=== PATIENT | female | born 1935 | race Caucasian/White ===

== ENCOUNTER 2024-06-13 08:59 | Emergency (ER) | payer MEDICARE, SELFPAY ==
--- NOTE | ~2024-06-13 | CT_ITS ---
EXAMINATION: CT abdomen pelvis w con DATE: 06/13/2024 10:25 INDICATION: Left-sided abdominal pain. History of diverticulitis. TECHNIQUE: Computed tomography (CT) of the abdomen and pelvis was performed with 100 CC Omnipaque 350 intravenous contrast. Automated exposure control and iterative reconstruction technique were employe d. Exam dose: 189.00 mGy-cm total exam DLP. COMPARISON: 11/21/2007 CT abdomen pelvis FINDINGS: Stable approximately 3.5 mm nodular density of the middle lobe, without significant change since 11/21/2007, consistent with benign process, likely pulmonary granuloma. There is minimal dependent atelectasis of the lower lobes. No basilar consolidation is noted. Heart size is normal. No pericardial or pleural effusion. The liver is unremarkable other than a couple of probable hepatic cysts, measuring up to approximatel y 7 mm. Normal splenic size. No pancreatic mass lesion or calcification is noted. The pancreatic duct measures up to 3 mm, upper l imits of normal. The gallbladder appears unremarkable, without thickening of the wall or pericholecystic fluid or fat stranding. No bile duct dilatation. Normal morphology of the adrenal glands. Very small upper pole right renal cortical probable cyst. The kidneys are unremarkable. No urinary tr act calculus or hydroureteronephrosis. The urinary bladder is unremarkable. Status post hysterectomy. There is extensive atherosclerotic calcification of the abdominal aorta but no abdominal aortic aneur ysm. No intraperitoneal or retroperitoneal or pelvic mass lesion or adenopathy or ascites. Diverticulosis of colon, including particularly numerous sigmoid diverticula; no CT evidence of diver ticulitis is evident. No bowel obstruction or intraperitoneal air. Prominent compression fracture deformity of L4. There is severe degenerative disc disease of the lumbar and lumbosacral spine. There is severe degenerative change of the lumbar and lumbosacral apophyseal joints comment with asso ciated grade 1 anterolisthesis at L4-5. No suspicious osteolytic or osteoblastic lesions are noted. IMPRESSION: Diverticulosis of the left colon; no CT evidence of diverticulitis Small hepatic cysts Status post hysterectomy Prominent compression fracture of L4 Extensive degenerative change of the lumbar spine Reviewed, dictated and finalized at [facility] Reviewed, dictated and finalized at [facility] [employer]NA[employer]
[2024-06-13 09:22] VITALS: BP 99/84; PULSE 71; RESP 18; TEMP 36.5; O2SAT 100
[2024-06-13 09:33] VITALS: BP 157/88; PULSE 66; RESP 18; O2SAT 100
[2024-06-13 09:35] LABS: Basophils Absolute Auto 0.1 K/mm3 (0.0-0.1); Basophils Percent Auto 0.9 % (0.2-1.2); Eosinophils Absolute Auto 0.2 K/mm3 (0-0.3); Hematocrit 41.6 % (37.0-47.0); Hemoglobin 14.1 g/dL (12.0-15.0); Immature Granulocyte Absolute 0.01 K/mm3 (0.00-0.031); Immature Granulocyte Percent A 0.2 % (0-0.5); Lymphocytes Absolute Auto 1.27 K/mm3 (0.9-3.2); Lymphocytes Percent Auto 22.5 % (18.3-44.2); Mean Corpuscular HGB Conc 33.9 g/dl (32-36); Mean Corpuscular Hemoglobin 30.7 pg (26-34); Mean Corpuscular Volume 90.4 fl (80-100); Mean Platelet Volume 9.1 fl (7.4-10.4); Monocytes Absolute Auto 0.6 K/mm3 (0.1-0.6); Monocytes Percent Auto 10.6 % (2.6-8.5); Neutrophils Absolute Auto 3.6 K/mm3 (1.3-6.7); Neutrophils Percent Auto 62.8 % (45.5-73.1); Platelet Count Result 239 k/mm3 (150-375); Red Cell Distribution Width 12.9 % (11.5-14.5); White Blood Count 5.7 K/mm3 (4.5-10.0)
[2024-06-13 09:47] VITALS: BP 133/59; PULSE 67; RESP 18; O2SAT 99
[2024-06-13 10:01] VITALS: BP 133/61; PULSE 69; RESP 18; O2SAT 100
[2024-06-13 10:03] LABS: Alanine Aminotransferase 18 U/L (6-35); Albumin Level 4.5 g/dL (3.5-5.1); Alkaline Phosphatase 64 U/L (38-126); Anion Gap 4 mmol/L (4-12); Aspartate Amino Transferase 30 U/L (14-36); Bilirubin,Total 0.8 mg/dL (0.2-1.3); Blood Urea Nitrogen 8 mg/dL (7-17); Calcium 9.7 mg/dL (8.4-10.2); Carbon Dioxide 32 mmol/L (22-30); Chloride 97 mmol/L (98-107); Estimated CRCL calculation 50 ml/min; Estimated Glomerular Filt Rate > 60; Glucose 90 mg/dL (65-110); Lipase 134 U/L (23-300); Potassium 4.1 mmol/L (3.4-5.0); Sodium 133 mmol/L (137-145)
--- NOTE | 2024-06-13 10:12 | ED.GENADULT ---
HPI - General Adult General Chief complaint: Unspecified Stated complaint: constipation and bloating Time Seen by Provider: 06/13/24 09:04 Source: patient Mode of arrival: ambulatory Limitations: no limitations History of Present Illness HPI narrative: this is an 88-year-old female that presents to the emergency department for left-sided abdominal pain. Ongoing over the last week. Associated with bloating and abnormal stools. reports she is feeling very constipated and normally able to have small bowel movements. Denies fevers or vomiting. Related Data Allergies Allergy/AdvReac Type Severity Reaction Status Date / Time Penicillins Allergy Unknown Hives Verified 06/13/24 09:01 Sulfa (Sulfonamide Allergy Unknown Diarrhea Verified 06/13/24 09:01 Antibiotics) Review of Systems Review of Systems: CONSTITUTIONAL: Denies fever GASTROINTESTINAL: Reports abdominal pain, nausea. Denies vomiting GENITOURINARY: Denies dysuria or hematuria. All systems reviewed & are unremarkable except as noted in HPI and below PMFSH Past Medical History Medical History (Updated 06/13/24 @ 12:53 by Sejal Mack PA-C) History of hyperlipidemia Family History Family History (System 06/07/22 @ 15:07 by Paul Conti) Other Cerebrovascular accident Diabetes mellitus Family history of tuberculosis Social History Social History (System 06/07/22 @ 15:07 by Paul Conti) Smoking status: Never smoker Alcohol intake: never Exam Narrative: GENERAL: Elderly, well-nourished, and in no acute distress. HEAD: Normocephalic, atraumatic. EYES: EOMI. CHEST: Clear to auscultation. No respiratory distress. No wheezes rales or rhonchi HEART: Regular rate and rhythm. No murmur heard. Normal peripheral pulses. ABDOMEN: Soft, nondistended, normal active bowel sounds. Tender to palpation in the left lower abdomen, without guarding EXTREMITIES: Normal range of motion. No edema. SKIN: Warm, dry, no rash. NEURO: No focal deficits. Alert and oriented x3. PSYCH: Normal mood and affect Course Vital Signs Vital signs: Vital Signs Temperature 97.7 F 06/13/24 09:22 Pulse Rate 71 06/13/24 09:22 Respiratory Rate 18 06/13/24 09:22 Blood Pressure 99/84 L 06/13/24 09:22 Pulse Oximetry 100 06/13/24 09:22 Temperature 97.7 F 06/13/24 09:22 Pulse Rate 69 06/13/24 10:01 Respiratory Rate 18 06/13/24 10:01 Blood Pressure 133/61 06/13/24 10:01 Pulse Oximetry 100 06/13/24 10:45 Medical Decision Making MDM Narrative Medical decision making narrative: patient presents to the ER for left sided lower abdominal pain. Ongoing over the last week. She is afebrile and nontoxic appearing. Her vitals are stable. CBC without leukocytosis. Metabolic panel with mild hyponatremia. Lipase is normal. Urine with evidence of infection. This will be sent for culture. CT abdomen pelvis shows diverticulosis. Small hepatic cysts. Chronic compression fracture of L4. Extension degenerative changes. Patient and family updated on workup and agree with plan of care. She is to follow up with primary provider. She was given warnings to return to the ER Differential Diagnosis Differential Diagnosis: diverticulitis, UTI, constipation, kidney stone Vital Signs Vital Signs: Vital Signs Temperature 97.7 F 06/13/24 09:22 Pulse Rate 71 06/13/24 09:22 Respiratory Rate 18 06/13/24 09:22 Blood Pressure 99/84 L 06/13/24 09:22 Pulse Oximetry 100 06/13/24 09:22 Temperature 97.7 F 06/13/24 09:22 Pulse Rate 69 06/13/24 10:01 Respiratory Rate 18 06/13/24 10:01 Blood Pressure 133/61 06/13/24 10:01 Pulse Oximetry 100 06/13/24 10:45 Lab Data Lab results reviewed: Yes I reviewed the patient's lab results. 06/13/24 09:30 06/13/24 09:30 Labs: Lab Results 06/13/24 06/13/24 Range/Units 09:30 11:17 WBC 5.7 (4.5-10.0) K/mm3 RBC 4.60 (4.2-5.4) M/mm3 Hgb 14.1 (12.0-15.0) g/dL Hct 41.6 (37.0-47.0) % MCV 90.4 (80-100) fl MCH 30.7 (26-34) pg MCHC 33.9 (32-36) g/dl RDW 12.9 (11.5-14.5) % Plt Count 239 (150-375) k/mm3 MPV 9.1 (7.4-10.4) fl Immature Gran % (Auto) 0.2 (0-0.5) % Neut % (Auto) 62.8 (45.5-73.1) % Lymph % (Auto) 22.5 (18.3-44.2) % [place] % (Auto) 10.6 H (2.6-8.5) % Eos % (Auto) 3.0 (0-4.4) % Baso % (Auto) 0.9 (0.2-1.2) % Lymph # (Auto) 1.27 (0.9-3.2) K/mm3 [place] # (Auto) 0.6 (0.1-0.6) K/mm3 Eos # (Auto) 0.2 (0-0.3) K/mm3 Baso # (Auto) 0.1 (0.0-0.1) K/mm3 Abs Immat Gran (auto) 0.01 (0.00-0.031) K/mm3 Absolute Neuts (auto) 3.6 (1.3-6.7) K/mm3 Absolute Nucleated RBC 0.000 (0.0-0.012) K/mm3 Nucleated RBC % 0.0 (0.0-0.2) % Sodium 133 L (137-145) mmol/L Potassium 4.1 (3.4-5.0) mmol/L Chloride 97 L (98-107) mmol/L Carbon Dioxide 32 H (22-30) mmol/L Anion Gap 4 (4-12) mmol/L BUN 8 (7-17) mg/dL Creatinine 0.50 L (0.7-1.0) mg/dL Estim Creat Clear Calc 50 ml/min Estimated GFR > 60 (59 - ) Glucose 90 (65-110) mg/dL Calcium 9.7 (8.4-10.2) mg/dL Total Bilirubin 0.8 (0.2-1.3) mg/dL AST 30 (14-36) U/L ALT 18 (6-35) U/L Alkaline Phosphatase 64 (38-126) U/L Total Protein 8.0 (6.3-8.2) g/dL Albumin 4.5 (3.5-5.1) g/dL Lipase 134 (23-300) U/L Urine Color Yellow (Yellow) Urine Appearance Clear (Clear) Urine pH 7.5 (5.0-9.0) Ur Specific [place] 1.037 H (1.001-1.035) Urine Protein Negative (Negative) mg/dL Urine Glucose (UA) Negative (Negative) mg/dL Urine Ketones Negative (Negative) mg/dL Ur Blood (Man) Non-hemolyzed trace H (Negative) Urine Nitrate Negative (Negative) Urine Bilirubin Negative (Negative) Urine Urobilinogen 0.2 (<2.0) mg/dL Leukocyte Esterase Rfl 2+ H (Negative) [place]/UL Urine RBC 0-2 (0-2) /hpf Urine WBC 11-20 H (0-3) /hpf Ur Squamous Epith Cells None seen (Few) /hpf Urine Bacteria None seen /hpf Urine Casts 0-2 Imaging Data Radiologist's impression: ITS Impressions Abdomen/Pelvis CT 06/13/24 10:35 IMPRESSION: Diverticulosis of the left colon; no CT evidence of diverticulitis Small hepatic cysts Status post hysterectomy Prominent compression fracture of L4 Extensive degenerative change of the lumbar spine Critical Care Time Critical Care Time Critical Care Time: No Discharge Plan Discharge Clinical Impression: Abdominal pain, acute, left lower quadrant, Acute UTI Patient Disposition: Home, Self-Care Condition: Stable Instructions: Antibiotic Form, Abdominal Pain (ED), Urinary Tract Infection in Older Adults (ED) Additional Instructions: Return to the ER if you experience fever, abdominal pain with nausea and vomiting, you are unable to keep down liquids or solids, blood in the stool, or any other symptoms that are concerning to you Remain well hydrated. Take oral antibiotics as prescribed Follow up with your primary care doctor Prescriptions: New ciprofloxacin HCl 250 mg tablet 250 mg PO Q12H 5 Days Qty: 10 0RF Follow-up/Referrals: Richard,Duc Mejía MD [Primary Care Provider] -
[2024-06-13 10:45] VITALS: O2SAT 100
[2024-06-13 11:32] LABS: Add Urine Microscopic? YES; Appearance Urine Clear (Clear); Bacteria Urine None Seen /hpf; Bilirubin Urine Negative (Negative); Blood Urine Non-Hemolyzed Trace (Negative); Color Urine Yellow (Yellow); Glucose Urine UA Negative (Negative); Ketones Urine Negative (Negative); Leukocyte Esterase Ur 2+ LEU/UL (Negative); Nitrate Urine Negative (Negative); Non Pathogenic Casts 0-2; Protein Urine Negative (Negative); RBC Urine 0-2 /hpf (0-2); Specific Grav Ur 1.037 (1.001-1.035); Squamous Epithelial Cell Urine None Seen /hpf (Few); Urobilinogen Urine 0.2 mg/dL (<2.0); pH Urine 7.5 (5.0-9.0)
[2024-06-13 13:08] VITALS: BP 113/67; PULSE 69; RESP 20; O2SAT 99
== END 2024-06-13 13:10 | disposition home or self-care (01) ==
PROVIDERS: Emergency Provider Physician Assistant; PCP Internal Medicine
DX: R10.32 Left lower quadrant pain (principal); N39.0 Urinary tract infection, site not specified; E78.5 Hyperlipidemia, unspecified
CPT/HCPCS: 36415; 74177; 80053; 81001; 83690; 85025; 87086; 99284; Q9967